=== PATIENT | female | born 1970 ===

== ENCOUNTER → 2022-12-26 12:58 | Outpatient (CLI) | payer BC, SELFPAY ==
--- NOTE | ~2022-12-26 | US_ITS ---
Pelvic ultrasound. Clinical History: Postmenopausal bleeding Technique: Realtime transabdominal and transvaginal scanning of the pelvis was performed. Color flow Doppler and Doppler spectral analysis were performed. Findings: The uterus is anteverted. The endometrial stripe has a thickness of 3 mm. No focal mass is identified. The right ovary measures 1.9 x 1.0 x 1.6 cm. No significant right ovarian or adnexal mass is seen. The left ovary measures 1.7 x 0.7 x 1.5 cm. No significant left ovarian or adnexal mass is seen. There is no evidence of free fluid in the cul de sac. Impression: No significant abnormality seen. Reviewed, dictated and finalized at location . Impression: No significant abnormality seen.
--- NOTE | ~2022-12-26 | US_ITS ---
Ultrasound of the left axilla CLINICAL HISTORY: Axillary lump TECHNIQUE: Real-time sonographic imaging performed at the left axilla at the area of clinical concern . FINDINGS: No solid or cystic lesion is identified. No sonographic abnormality seen at the region scan addison. IMPRESSION: No sonographic correlate seen at the area of clinical concern in the left axilla. Reviewed, dictated and finalized at location M. IMPRESSION: No sonographic correlate seen at the area of clinical concern in the left axill a.
== END ==
PROVIDERS: PCP Advanced Practice Midwife; Visit Provider Advanced Practice Midwife
DX: N95.0 Postmenopausal bleeding (principal); N63.32 Unspecified lump in axillary tail of the left breast; N83.202 Unspecified ovarian cyst, left side; R10.33 Periumbilical pain
CPT/HCPCS: 76856; 76882

== ENCOUNTER 2023-05-29 11:49 | Outpatient (CLI) | payer BC, SELFPAY ==
--- NOTE | ~2023-05-29 | US_ITS ---
EXAMINATION: US transvaginal DATE: 05/29/2023 12:24 INDICATION: Pelvic pain and postmenopausal bleeding. TECHNIQUE: Multiple endovaginal sonographic images of the pelvis were obtained. COMPARISON: None. FINDINGS: The uterus measures 7.7 x 3.5 x 4.4 cm. The endometrial complex measures 4 mm in thickness. The righ t ovary measures 2.1 x 1.2 x 1.8 cm. The left ovary is not visualized. There is no free fluid in the pelvis. IMPRESSION: 1. Normal pelvic ultrasound. Reviewed, dictated and finalized at location B.
== END 2023-05-29 11:50 ==
PROVIDERS: PCP Advanced Practice Midwife; Visit Provider Advanced Practice Midwife
DX: N95.0 Postmenopausal bleeding (principal); R10.2 Pelvic and perineal pain
CPT/HCPCS: 76830